=== PATIENT | female | born 1990 | race Caucasian/White ===

== ENCOUNTER → 2016-11-25 | Outpatient (CLI) | payer OTHER ==
[~2016-11-25] MED LIST: AMOXICILLIN500 M2 PO; BACTROBAN OINT22 GM PO; BIRTH CONTROL1 EAC1 PO; CLARITIN10 MG PO; CLINDAMYCIN HC300 MG PO; MACROBID100 M1 PO; MIRALAX POWDER255 GM PO; PRENATAL1 TA3 PO; SEPTRA DS 800 M1 TAB PO; ULTRAM50 MG PO; ZITHROMAX Z PA250 MG PO
== END | disposition home or self-care (01) ==
LOC: US 17:00
DX: Z34.81 Encounter for supervision of other normal pregnancy, first trimester (principal)

== ENCOUNTER → 2017-01-31 | Outpatient (CLI) | payer OTHER | END | disposition home or self-care (01) | LOC: US 13:00 | DX: Z34.82 Encounter for supervision of other normal pregnancy, second trimester (principal); Z3A.19 19 weeks gestation of pregnancy ==

== ENCOUNTER → 2017-05-20 | Outpatient (CLI) | payer OTHER | END | disposition home or self-care (01) | LOC: US 11:00 | DX: Z34.83 Encounter for supervision of other normal pregnancy, third trimester (principal) ==

== ENCOUNTER 2019-03-27 21:40 | Emergency (ER) | payer OTHER ==
[~2019-03-27] VITALS: Ht 160 cm; Wt 66.7 kg
[~2019-03-27 21:40] MED LIST changes: +CLINDAMYCIN150 MG PO; +NAPROSYN500 MG PO; +TYLENOL325 M1 PO
[2019-03-27] MEDS ORDERED: FLAGYL500 MG PO (22:20)
[2019-03-27] MEDS ORDERED: AUGMENTIN 875-875 MG PO (22:20)
[2019-03-28] MEDS ORDERED: Motrin,Rufen800 MG PO (17:35)
== END 2019-03-27 22:27 | disposition home or self-care (01) ==
LOC: ED 21:40
DX: K04.7 Periapical abscess without sinus (principal); Z79.899 Other long term (current) drug therapy

== ENCOUNTER 2019-05-15 16:28 | Emergency (ER) | payer OTHER ==
[~2019-05-15] VITALS: Ht 160 cm; Wt 63.5 kg
[~2019-05-15 16:28] MED LIST changes: +AUGMENTIN 875-875 MG PO; +FLAGYL500 MG PO; +Motrin,Rufen800 MG PO
[2019-05-15 17:26] LABS: BILIRUBIN NEGATIVE (NEGATIVE); BLOOD NEGATIVE (NEGATIVE); CLARITY CLEAR (CLEAR); COLOR YELLOW (YELLOW); GLUCOSE NEGATIVE (NEGATIVE); KETONE NEGATIVE (NEGATIVE); LEUKO ESTERASE NEGATIVE (NEGATIVE); NITRITE NEGATIVE (NEGATIVE); SPECIFIC GRAVITY <= 1.005 (1.005-1.030); UROBILINOGEN 0.2 E.U./dl (0.2-1.0)
[2019-05-15 17:27] LABS: HEMATOCRIT 48.6 % (37.0-47.0); HEMOGLOBIN 15.7 g/dl (12.0-16.0); MEAN CELL VOLUME 88.8 fl (81.0-99.0); MEAN CORPUSCULAR HGB 28.7 pg (27.0-31.0); MEAN CORPUSCULAR HGB CONC 32.3 g/dl (33.0-37.0); MEAN PLATELET VOLUME 13.9 fl (9.6-12.3); PLATELET COUNT AUTOMATED 148 10*3/uL (130-400); RED BLOOD COUNT 5.47 10*6/uL (4.10-5.10); RED CELL DISTRI WIDTH 12.4 % (0-14.5); WHITE BLOOD COUNT 12.4 10*3/uL (4.8-10.8)
[2019-05-15 17:42] LABS: ALBUMIN 4.2 gm/dl (3.1-4.5); ALKALINE PHOSPHATASE 96 U/L (45-117); BUN 4 mg/dl (7-24); CHLORIDE 104 mmol/L (98-107); LIPASE 81 U/L (73-393); POTASSIUM 3.7 mmol/L (3.5-5.1); SGOT/AST 35 IU/L (3-35); SGPT/ALT 30 U/L (12-78); SODIUM 137 mmol/L (136-145); TOTAL PROTEIN 8.1 gm/dL (6.4-8.2)
[2019-05-15 17:42] LABS: BACTERIA 1+; EPITHELIAL CELLS 0-2; RBC 0-2 rbc/hpf (0-2); WBC 0-2 wbc/hpf (0-5)
[2019-05-15 17:54] LABS: BASOPHILS 2 % (0-1); TOTAL CELLS COUNTED 100 #CELLS
[2019-05-15 17:55] LABS: PLATELET SUFFICIENCY NORMAL (NORMAL)
[2019-05-15] MEDS ORDERED: CLINDAMYCIN HC300 MG PO (20:53)
== END 2019-05-15 21:05 | disposition home or self-care (01) ==
LOC: ED 16:28
PROVIDERS: Nurse Practitioner Family
DX: N83.201 Unspecified ovarian cyst, right side (principal); K02.9 Dental caries, unspecified; B27.90 Infectious mononucleosis, unspecified without complication; Z79.899 Other long term (current) drug therapy

== ENCOUNTER 2019-08-28 18:41 | Emergency (ER) | payer OTHER ==
[~2019-08-28] VITALS: Ht 160 cm; Wt 66.7 kg
[2019-08-28 20:20] LABS: BUN 8 mg/dl (7-24); CHLORIDE 106 mmol/L (98-107); CREATININE 0.86 mg/dL (0.55-1.02); POTASSIUM 3.8 mmol/L (3.5-5.1); SODIUM 140 mmol/L (136-145)
[2019-08-28 20:41] LABS: BASO # 0.1 10*3/uL (0.0-0.1); BASO % 1.1 % (0.0-1.0); EOS # 0.1 10*3/uL (0.0-0.4); EOS % 1.5 % (1.0-4.0); HEMATOCRIT 46.8 % (37.0-47.0); HEMOGLOBIN 14.8 g/dl (12.0-16.0); LYMPH # 2.7 10*3/uL (1.3-4.4); LYMPH % 33.1 % (27.0-41.0); MEAN CORPUSCULAR HGB 27.8 pg (27.0-31.0); MEAN CORPUSCULAR HGB CONC 31.6 g/dl (33.0-37.0); MONO # 0.8 10*3/uL (0.1-1.0); MONO % 9.8 % (3.0-9.0); NEUT # 4.5 10*3/uL (2.3-7.9); NEUT % 54.3 % (47.0-73.0); PLATELET COUNT AUTOMATED 147 10*3/uL (130-400); RED BLOOD COUNT 5.32 10*6/uL (4.10-5.10); WHITE BLOOD COUNT 8.2 10*3/uL (4.8-10.8)
[2019-08-28] MEDS ORDERED: CYCLOBENZAPRINE5 M3 PO (20:51)
== END 2019-08-28 21:00 | disposition home or self-care (01) ==
LOC: ED 18:41
PROVIDERS: Nurse Practitioner Family
DX: S76.911A Strain of unspecified muscles, fascia and tendons at thigh level, right thigh, initial encounter (principal); Z79.2 Long term (current) use of antibiotics; Z79.899 Other long term (current) drug therapy; X58.XXXA Exposure to other specified factors, initial encounter; Y93.89 Activity, other specified; Y92.89 Other specified places as the place of occurrence of the external cause; Y99.8 Other external cause status

== ENCOUNTER 2020-01-06 14:53 | Emergency (ER) | payer OTHER ==
[~2020-01-06] VITALS: Ht 160 cm; Wt 66.7 kg
[~2020-01-06 14:53] MED LIST changes: +CYCLOBENZAPRINE5 M3 PO
== END 2020-01-06 17:03 | disposition home or self-care (01) ==
LOC: ED 14:53
DX: S16.1XXA Strain of muscle, fascia and tendon at neck level, initial encounter (principal); S70.01XA Contusion of right hip, initial encounter; Z79.899 Other long term (current) drug therapy; V89.2XXA Person injured in unspecified motor-vehicle accident, traffic, initial encounter; Y93.9 Activity, unspecified; Y92.89 Other specified places as the place of occurrence of the external cause; Y99.8 Other external cause status

== ENCOUNTER → 2023-09-15 | Outpatient (CLI) | payer OTHER | END | disposition home or self-care (01) | LOC: RAD 09:33 | PROVIDERS: ATTEND Nurse Practitioner Family | DX: M47.22 Other spondylosis with radiculopathy, cervical region (principal); M25.78 Osteophyte, vertebrae; M25.511 Pain in right shoulder; M25.512 Pain in left shoulder ==

== ENCOUNTER 2024-06-11 19:19 | Emergency (ER) | payer OTHER ==
[~2024-06-11] VITALS: Ht 167.6 cm; Wt 81.6 kg
[2024-06-11] MEDS ORDERED: Ketorolac Tromethamine 30 MG/ML VIAL IV ONE (19:50)
[2024-06-11] MEDS ORDERED: PENICILLIN V POTASSIUM 500 MG TAB PO ONE (19:50)
[2024-06-11] MEDS ORDERED: SODIUM CHLORIDE 0.9% 1,000 ML IV ONE (19:50)
[2024-06-11 20:08] LABS: HEMATOCRIT 42.8 % (37.0-47.0); MEAN CELL VOLUME 90.5 fl (81.0-99.0); MEAN CORPUSCULAR HGB 30.2 pg (27.0-31.0); MEAN CORPUSCULAR HGB CONC 33.4 g/dl (33.0-37.0); MEAN PLATELET VOLUME 12.9 fl (9.6-12.3); PLATELET COUNT AUTOMATED 196 10*3/uL (130-400); RED BLOOD COUNT 4.73 10*6/uL (4.10-5.10); RED CELL DISTRI WIDTH 12.9 % (0-14.5); WHITE BLOOD COUNT 9.5 10*3/uL (4.8-10.8)
[2024-06-11 20:12] LABS: MANUAL DIFF REFLEX YES
[2024-06-11 20:27] LABS: PLATELET SUFFICIENCY NORMAL (NORMAL); TOTAL CELLS COUNTED 100 #CELLS
[2024-06-11 20:28] LABS: BURR CELLS FEW
[2024-06-11] MEDS ORDERED: PENICILLIN VK500 MG PO (21:42)
[2024-06-11] MEDS ORDERED: ACETAMINOPHEN500 M4 PO (21:53)
== END 2024-06-11 22:08 | disposition home or self-care (01) ==
LOC: ED 19:19
PROVIDERS: Internal Medicine
DX: K02.9 Dental caries, unspecified (principal); R51.9 Headache, unspecified

== ENCOUNTER → 2024-08-15 | Outpatient (CLI) | payer OTHER ==
[~2024-08-15] MED LIST changes: +ACETAMINOPHEN500 M4 PO; +PENICILLIN VK500 MG PO
== END | disposition home or self-care (01) ==
LOC: MAMMO 12:58
PROVIDERS: ATTEND Nurse Practitioner Family
DX: N64.89 Other specified disorders of breast (principal); N64.4 Mastodynia; R92.333 Mammographic heterogeneous density, bilateral breasts